=== PATIENT | female | born 1960 | race Caucasian/White ===

== ENCOUNTER → 2018-03-26 | Outpatient (CLI) | payer OTHER | END | disposition home or self-care (01) | LOC: KCIC MAMMO 09:02 | DX: Z12.31 Encounter for screening mammogram for malignant neoplasm of breast (principal); Z13.820 Encounter for screening for osteoporosis; R29.890 Loss of height; Z82.62 Family history of osteoporosis; Z78.0 Asymptomatic menopausal state | CPT/HCPCS: 77063; 77067; 77080 ==

== ENCOUNTER → 2018-04-07 | Outpatient (CLI) | payer OTHER | END | disposition home or self-care (01) | LOC: NM 08:06 | DX: R07.9 Chest pain, unspecified (principal); Z82.62 Family history of osteoporosis | CPT/HCPCS: 78452; 93017; 96374; 96376; A9500 ==

== ENCOUNTER → 2018-05-18 | Outpatient (CLI) | payer OTHER ==
--- NOTE | 2018-05-18 17:14 | KCIC ---
Coronary artery calcium score dated May 18, 2018. No comparison available. Clinical Indication: Calcium screening. Technical factors: High resolution, computed tomography of the heart was performed with ECG gating and suspended respiration. No contrast material was administered. Post processing was performed on the 3-D computer workstation using diastolic phase images to measure the amount of coronary vascular calcium. Scoring was performed utilizing the Agatston Method. Results: Thorax: There is a small 3 mm noncalcified lung nodule within the left lower lobe. No other significant abnormality is identified in the lungs or mediastinum. Note that this CT exam is limited to the heart and adjacent structures. Coronary artery calcium score: Left main coronary artery: 0. Left anterior descending coronary artery: 81.3. Left circumflex coronary artery: 0. Right coronary artery: 0. Total coronary artery calcium score: 81.3. CONCLUSIONS: 1. Coronary atherosclerosis is present, limited amount. 2. Intermediate risk of cardiovascular event. 3. 3 mm noncalcified lung nodule within the left lower lobe. If the patient is at high risk for malignancy, then a follow-up chest CT in 12 months may be performed as per Fleischner guidelines. Electronically signed by: Balbir Harrell MD (05/18/2018 5:11 PM) [id number]
== END | disposition home or self-care (01) ==
LOC: KCIC CT 08:32
PROVIDERS: ATTEND Family Medicine
DX: I25.10 Atherosclerotic heart disease of native coronary artery without angina pectoris (principal); R91.1 Solitary pulmonary nodule
CPT/HCPCS: 75571

== ENCOUNTER → 2018-06-01 | Outpatient (CLI) | payer OTHER ==
--- NOTE | 2018-06-01 16:56 | RAD ---
Transabdominal and transvaginal sonography of the pelvis Clinical indications: Postmenopausal bleeding. Cervix polyp removed 2 weeks ago. Transabdominal sonography: The uterus and ovaries are poorly visualized by transabdominal exam. Therefore, transvaginal sonography will be performed. No adnexal mass or free fluid is evident. Transvaginal sonography: The uterus is retroflexed. There are 3 hypoechoic lesions of the cervix. The 2 smallest lesions located anteriorly on the right side measure 6 mm and 8 mm respectively and are adjacent to one another. The largest lesion located on the left side measures 18 mm in size. This lesion has some internal color flow and therefore could represent a cervical polyp or fibroid or malignancy. The endometrial canal measures 3 mm in thickness and therefore are not abnormally thickened. No fibroid is seen within the uterus itself. The right ovary measures 1.6 cm and 0.9 cm and 1.4 cm in size and is normal. Color Doppler flow is seen within the right ovary. The left ovary is not visualized. No adnexal mass or free fluid is evident. IMPRESSION: There are 3 hypoechoic lesions of the cervix with the largest measuring 18 mm in size on the left side. Internal color Doppler flow is seen within this lesion and therefore may represent a cervical polyp or fibroid or malignancy. Electronically signed by: Balbir Harrell MD (06/01/2018 4:53 PM) [facility]
== END | disposition home or self-care (01) ==
LOC: US 15:17
PROVIDERS: ATTEND Obstetrics & Gynecology
DX: N84.1 Polyp of cervix uteri (principal); I25.10 Atherosclerotic heart disease of native coronary artery without angina pectoris; Z98.890 Other specified postprocedural states; Z82.62 Family history of osteoporosis
CPT/HCPCS: 76830; 76856

== ENCOUNTER 2018-07-01 06:35 | Day surgery (SDC) | payer OTHER ==
[~2018-07-01] VITALS: Ht 180.3 cm; Wt 111.1 kg
[~2018-07-01 06:35] MED LIST: ATOR10TA PO; CALC500T30 PO; METF500T9 PO; MULT1TAB52 PO
[2018-07-01] MEDS ORDERED: fentaNYL PF VIAL 100 MCG/2 ML VIAL IV PRN ×2 (07:00)
[2018-07-01] MEDS ORDERED: PROCHLORPERAZINE 10 MG/2 ML VIAL. IV PRN (07:00)
[2018-07-01] MEDS ORDERED: LIDOCAINE 1% PF 2 ML VIAL. ID PRN (07:00)
[2018-07-01] MEDS ORDERED: IV RINGERS,LACTATED 1000ML 1,000 ML IV SCH (07:00)
[2018-07-01] MEDS ORDERED: ONDANSETRON PF 4 MG/2 ML VIAL. IV PRN (07:00)
[2018-07-01] MEDS ORDERED: MORPHINE SULFATE 2 MG/ML VIAL. IV PRN (07:00)
[2018-07-01] MEDS ORDERED: HYDROmorphone 2 MG/ML VIAL IV PRN (07:00)
[2018-07-01 07:51] LABS: BASO % 0 % (0-3); EOS # 0.1 x10^3/uL (0.0-0.7); EOS % 1 % (0-3); HEMATOCRIT 39.7 % (36.0-47.0); HEMOGLOBIN 13.7 g/dL (12.0-15.5); LYMPH # 1.8 x10^3/uL (1.0-4.8); LYMPH % 29 % (24-48); MEAN CORPUSCULAR HEMOGLOBIN 34 pg (25-35); MEAN CORPUSCULAR HGB CONC 35 g/dL (31-37); MEAN CORPUSCULAR VOLUME 98 fL (79-100); MONO # 0.5 x10^3/uL (0.0-1.1); MONO % 7 % (0-9); NEUT # 3.9 x10^3uL (1.8-7.7); NEUT % 62 % (31-73); PLATELET COUNT 216 x10^3/uL (140-400); RED BLOOD COUNT 4.06 x10^6/uL (3.50-5.40); RED CELL DISTRIBUTION WIDTH 12.4 % (11.5-14.5); WHITE BLOOD COUNT 6.2 x10^3/uL (4.0-11.0)
[2018-07-01] MEDS ORDERED: LIDOCAINE 2% PF Vial for OR 5 ML VIAL. ONE (08:49)
[2018-07-01] MEDS ORDERED: fentaNYL PF VIAL 100 MCG/2 ML VIAL ONE (08:49)
[2018-07-01] MEDS ORDERED: PROPOFOL 20 ML IV ONE (08:49)
[2018-07-01] MEDS ORDERED: SUCCINYLCHOLINE 200 MG/10 ML VIAL. ONE (08:49)
[2018-07-01] MEDS ORDERED: ROCURONIUM 50 MG/5 ML VIAL. ONE (08:49)
[2018-07-01] MEDS ORDERED: DEXAMETHASONE SOD PHOS 20 MG/5 ML VIAL. ONE (09:07)
[2018-07-01] MEDS ORDERED: ONDANSETRON PF 4 MG/2 ML VIAL. ONE (09:07)
[2018-07-01] MEDS ORDERED: SEVOFLURANE 16 TO 30 MINUTES. IH ONE (09:07)
--- NOTE | 2018-07-01 09:34 | PDOC ---
BRIEF OPERATIVE NOTE Date: Jul 01, 2018 Pre-Op Diagnosis PMB Post-Op Diagnosis Same + Endometrial polyp Procedure [place]formed [place] [facility] [place] Anesthesia Type: General Blood Loss Less than 5 ml Specimens Obtained endometrial polyp Findings endometrial polyp Complications none Operative Note see dictation KEMAL ALEXIS Jr, MD Jul 01, 2018 09:34
--- NOTE | 2018-07-01 09:34 | DISCH ---
DISCHARGE INSTRUCTIONS Condition on Discharge Condition on Discharge: Stable Activity After Discharge Activity Instructions for Disc: Activity as tolerated Lifting Instructions after Dis: No heavy lifting Driving Instructions after Dis: Do not drive today Diet after Discharge Diet after Discharge: Regular Contacting the DRGee after DC Call your doctor for: Concerns you may have Follow-Up Follow up with: Dr. Alexis in 1 wk KEMAL ALEXIS Jr, MD Jul 01, 2018 09:34
[2018-07-01] MEDS ORDERED: IBUP-1060 PO (10:11)
[2018-07-01] MEDS ORDERED: IBUPROFEN 400 MG TABLET. PO ONE (10:15)
[2018-07-01] MEDS ORDERED: SCOPOLAMINE 1.5MG PATCH. TD ONE (10:30)
[2018-07-01 10:50] VITALS: BP 156/70
--- NOTE | 2018-07-01 11:04 | OP ---
DATE OF SURGERY: PREOPERATIVE DIAGNOSES: Postmenopausal bleeding. POSTOPERATIVE DIAGNOSES: Postmenopausal bleeding plus endometrial polyp. PROCEDURE: Operative hysteroscopy. SURGEON: Kostas Mackenzie M.D. ANESTHESIA: GETA. ESTIMATED BLOOD LOSS: Less than 5 mL. COMPLICATIONS: None. FINDINGS: Endometrial polyp. SUMMARY: A 58-year-old female with postmenopausal bleeding was counseled on operative hysteroscopy, risks, benefits and expectations and voiced clear a understanding to proceed. DESCRIPTION OF PROCEDURE: The patient was taken to surgery suite and placed in dorsal lithotomy position. She was prepped with Betadine solution and draped in a sterile fashion. After adequate anesthesia, weighted speculum and curved Walsh were placed vaginally and anterior lip of the cervix grasped with single tooth tenaculum. Cervix was dilated with Hegar dilators up to size 8. The TruClear hysteroscope was then placed. There was 1-2 cm size endometrial polyp that was removed with the TruClear device. The remaining endometrial canal and cavity appeared normal. The hysteroscope was then removed. Single tooth tenaculum and weighted speculum were removed. The patient tolerated the procedure well, was sent to recovery room in stable condition. Sponge and needle count correct x 3. KOSTAS MACKENZIE MD DR: EVE/migue JOB#: [id number] / [id number]
--- NOTE | 2018-07-02 14:10 | PATHOLOGY ---
[facility] Accession Number: [id number] . 01 Material submitted: . ENDOMETRIAL POLYP . 01 Clinical history: . Postmenopausal bleeding . 02 Diagnosis: Endometrial biopsy: - Endometrial polyp. (JPM:ronnie; 07/02/2018) QMS/07/02/2018 . 02 Comment: There is no atypia or evidence of malignancy. . 02 Electronically signed: . Calos Gross MD, Pathologist NPI- [id number] . 01 Gross description: . Received in formalin labeled "Jorge A, Quyen, endometrial polyp," are multiple small fragments of machado membranous tissue, measuring 1.5 x 0.6 x 0.2 cm in aggregate dimensions. The specimen is filtered and submitted entirely in cassette A1. (TSD; 07/01/2018) TOB/TOB . 02 Pathologist provided ICD-10: N84.0 . 02 CPT . 414272 Specimen Comment: A courtesy copy of this report has been sent to Specimen Comment: [phone], . Specimen Comment: Report sent to / DR BAILEY Specimen Comment: A duplicate report has been generated due to demographic updates. Performed at: 01 [facility] [address], [place] [id number] MD Chito Nguyễn MD Phone: [phone] Performed at: 02 [facility] [address], [place] [id number] MD Calos Gross MD Phone: [phone]
== END 2018-07-01 11:17 | disposition home or self-care (01) ==
LOC: SURG 06:35
PROVIDERS: ATTEND Obstetrics & Gynecology
DX: N84.0 Polyp of corpus uteri (principal); E11.9 Type 2 diabetes mellitus without complications; Z98.890 Other specified postprocedural states; Z87.442 Personal history of urinary calculi; Z83.3 Family history of diabetes mellitus; Z82.62 Family history of osteoporosis; Z90.5 Acquired absence of kidney; Z79.84 Long term (current) use of oral hypoglycemic drugs
CPT/HCPCS: 36415; 58558; 82962; 85025; A7015; J0690; J1100; J2001; J2405; J2704; J3010; 88305; J0330

== ENCOUNTER → 2018-07-26 | Outpatient (CLI) | payer OTHER ==
[2018-07-01 10:50] VITALS: BP 156/70
[~2018-07-26] MED LIST changes: +IBUP-1060 PO
--- NOTE | 2018-07-26 10:34 | KCIC ---
LIMITED ABDOMINAL ULTRASOUND History: Right upper quadrant pain. Diabetes. Comparison: None. Procedure: Transabdominal ultrasound images are obtained. Findings: Examination is technically difficult secondary to bowel gas. Visualized pancreas is unremarkable. Liver is increased in echogenicity. No focal hepatic masses are identified. Gallbladder has an unremarkable appearance. Common bile duct measures normally at 4 mm in diameter. Right kidney is suboptimally visualized, especially the inferior pole, and is estimated to measure 10.6 cm in length. There is no evidence of stone or hydronephrosis. Visualized IVC demonstrates normal caliber. Impression: 1. Unremarkable right upper quadrant ultrasound. Electronically signed by: Shekhar Newell MD (07/26/2018 10:31 AM) [id number]
== END | disposition home or self-care (01) ==
LOC: KCIC US 07:40
PROVIDERS: ATTEND Family Medicine
DX: R10.11 Right upper quadrant pain (principal); E11.9 Type 2 diabetes mellitus without complications
CPT/HCPCS: 76705

== ENCOUNTER → 2021-10-17 | Outpatient (CLI) | payer OTHER ==
[~2021-10-17] MED LIST changes: +METF-658 PO; -METF500T9 PO; +MULT-445 PO; -MULT1TAB52 PO
--- NOTE | 2021-10-18 08:53 | KCIC ---
Bilateral digital screening 2-D and 3-D (digital breast tomosynthesis) mammogram: Reason for examination: Routine screening. Comparison: Mammogram from 03/26/2018. Interpretation was made with the benefit of CAD. FINDINGS: Breast density: Category B. There are scattered areas of fibroglandular density. No suspicious breast mass, malignant appearing calcifications, or architectural distortion is seen. IMPRESSION: No evidence of malignancy. Assessment: BI-RADS 1. Negative. Recommendation: Routine screening mammograms. The patient will receive a letter with the results in the mail. Patient information will be entered i nto the mammography reminder system with a target recall date for the next mammogram. A reminder joanna er will be generated. Electronically signed by: Shelia Moore MD (10/18/2021 8:50 AM) [email or web address]
== END ==
LOC: KCIC MAMMO 15:41
PROVIDERS: ATTEND Nurse Practitioner
DX: Z12.31 Encounter for screening mammogram for malignant neoplasm of breast (principal)
CPT/HCPCS: 77063; 77067